=== PATIENT | male | born 1940 | race Caucasian/White ===

== ENCOUNTER → 2020-10-30 13:20 | Outpatient (CLI) | payer MEDICARE, SELFPAY ==
[2020-10-30] MEDS: COVID-19 VACC, Ad26(JANSSEN)/PF 0.5 ML IM (13:41)
== END ==
PROVIDERS: Visit Provider Internal Medicine
DX: Z23 Encounter for immunization (principal)
CPT/HCPCS: 0031A; 91303

== ENCOUNTER → 2021-08-29 14:57 | Outpatient (CLI) | payer MEDICARE, SELFPAY ==
--- NOTE | 2021-08-29 15:01 | DI.US.S_ITS ---
PROCEDURE: US PERIPH VENOUS LOW EXTREM LT INDICATIONS: POSSIBLE DVT TECHNIQUE: Real-time imaging, as well as color and pulse Doppler interrogation, were performed of the lower extremity deep veins from the inguinal ligament to the popliteal fossa. COMPARISON: None. FINDINGS: The common femoral, femoral and popliteal veins are normally compressible, and free of intraluminal thrombus. Color and pulse Doppler demonstrate normal phasic intraluminal flow. There is normal augmentation response to distal compression maneuver. IMPRESSION: No evidence of DVT in visualized left lower extremity veins. Dictated by: Jose Frederick M.D. on 08/29/2021 at 15:44 Approved by: Jose Frederick M.D. on 08/29/2021 at 15:44
--- NOTE | 2021-08-29 15:02 | DI.RAD.S_ITS ---
PROCEDURE: XR FOOT LT MIN 3V INDICATIONS: POSSIBLE DVT TECHNIQUE: 3 views of the foot were acquired. COMPARISON: None. FINDINGS: Bones: No fractures or dislocations. Osteoarthritic changes are noted throughout interphalangeal joint with hammertoe deformity involving 2nd toe. No suspicious bony lesions. No gross bony erosive changes are seen. Soft tissues: No tibiotalar joint effusion. Achilles tendon appears normal. IMPRESSION: No left foot fracture or dislocation. 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 Dictated by: Jose Frederick M.D. on 08/29/2021 at 15:46 Approved by: Jose Frederick M.D. on 08/29/2021 at 16:09
== END ==
PROVIDERS: PCP Family Medicine; Referring Provider Family Medicine; Visit Provider Family Medicine
DX: M19.072 Primary osteoarthritis, left ankle and foot (principal); M20.42 Other hammer toe(s) (acquired), left foot; M79.89 Other specified soft tissue disorders
CPT/HCPCS: 73630; 93971